=== PATIENT | female | born 1970 | race Caucasian/White ===

== ENCOUNTER 2024-12-01 11:16 | Day surgery (SDC) | payer BC ==
[~2024-12-01] VITALS: Ht 167.6 cm; Wt 99.8 kg
[~2024-12-01 11:16] MED LIST: LIDOCAINE 2% 100MG/5ML SDV (FOR ANES.) As Ordered ONE; PHENYLEPHRINE 10% OPHTH SOL 5ML OS PRN; SERT50TA29 PO; propofoL 200 MG/20 ML VIAL As Ordered ONE
[2024-12-01] MEDS: LIDOCAINE 3.5 % 1ML OPHTH TOPICAL GEL OU ONE (11:45)
[2024-12-01] MEDS: OFLOXACIN 0.3 % (OCUFLOX) OPTH SOL 5ML OS ONE (11:45)
[2024-12-01] MEDS: TROPICAMIDE 1% OPHTH SOLN 15ML OS SCH (11:50)
[2024-12-01] MEDS: CYCLOPENTOLATE 1% OPHTH SOLN 2ML BTL OS SCH (11:50)
[2024-12-01] MEDS: PHENYLEPHRINE 2.5% OPHTH SOL 2ML OS SCH (11:50)
[2024-12-01] MEDS ORDERED: MIDAZOLAM INJ 2MG/2ML VIAL As Ordered ONE (12:17)
[2024-12-01] MEDS ORDERED: fentaNYL 100 MCG/2 ML INJECTION As Ordered ONE (12:17)
[2024-12-01] MEDS: BSS IRRIG/VANCO(10MG)/TOBRA(5MG)/EPINEPH(1:1000-0.5CC)500ML BAG-ORONLY As Ordered ONE (12:45)
[2024-12-01] MEDS: CEFUROXIME 1MG/0.1ML INTRACAMERAL INJ As Ordered ONE (12:45)
[2024-12-01] MEDS: LIDOCAINE 1% SDV 5ML VIAL As Ordered ONE (12:45)
[2024-12-01 12:56] VITALS: BP 145/75; TEMP 97.6; O2SAT 98
== END 2024-12-01 13:17 | disposition home or self-care (01) ==
LOC: M SDC 11:16
PROVIDERS: ATTEND Ophthalmology
DX: H25.12 Age-related nuclear cataract, left eye (principal); F41.9 Anxiety disorder, unspecified; Z79.899 Other long term (current) drug therapy
CPT/HCPCS: 66984; J0697; J2250; J3010; V2632

== ENCOUNTER 2024-12-08 09:58 | Day surgery (SDC) | payer BC ==
[~2024-12-08] VITALS: Ht 167.6 cm; Wt 99.9 kg
[~2024-12-08 09:58] MED LIST changes: +CYCLOPENTOLATE 1% OPHTH SOLN 2ML BTL OD SCH; -LIDOCAINE 2% 100MG/5ML SDV (FOR ANES.) As Ordered ONE; +LIDOCAINE 3.5 % 1ML OPHTH TOPICAL GEL OU ONE; +OFLOXACIN 0.3 % (OCUFLOX) OPTH SOL 5ML OD ONE; +PHENYLEPHRINE 10% OPHTH SOL 5ML OD PRN; -PHENYLEPHRINE 10% OPHTH SOL 5ML OS PRN; +PHENYLEPHRINE 2.5% OPHTH SOL 2ML OD SCH; +TROPICAMIDE 1% OPHTH SOLN 15ML OD SCH; -propofoL 200 MG/20 ML VIAL As Ordered ONE
[2024-12-08] MEDS ORDERED: MIDAZOLAM INJ 2MG/2ML VIAL As Ordered ONE (11:14)
[2024-12-08] MEDS ORDERED: fentaNYL 100 MCG/2 ML INJECTION As Ordered ONE (11:14)
[2024-12-08] MEDS: BSS IRRIG/VANCO(10MG)/TOBRA(5MG)/EPINEPH(1:1000-0.5CC)500ML BAG-ORONLY As Ordered ONE (12:03)
[2024-12-08] MEDS: CEFUROXIME 1MG/0.1ML INTRACAMERAL INJ As Ordered ONE (12:03)
[2024-12-08] MEDS: LIDOCAINE 1% SDV 5ML VIAL As Ordered ONE (12:03)
[2024-12-08 12:15] VITALS: BP 149/81; TEMP 97.3; O2SAT 96
== END 2024-12-08 12:30 | disposition home or self-care (01) ==
LOC: M SDC 09:58 → EDUNIT# 12:30
PROVIDERS: ATTEND Ophthalmology
DX: H25.11 Age-related nuclear cataract, right eye (principal); F41.9 Anxiety disorder, unspecified; Z79.899 Other long term (current) drug therapy
CPT/HCPCS: 66984; J0697; J2250; J3010; V2632